=== PATIENT | female | born 1960 | race Caucasian/White ===

== ENCOUNTER 2016-08-23 14:47 | Emergency (ER) | payer BC ==
[~2016-08-23] VITALS: Ht 170.2 cm; Wt 115.0 kg
[~2016-08-23 14:47] MED LIST: COZA100T PO; HYCO5UDC PO; HYDR-3133 PO; LIPI20TA PO; LOSA50TA PO; MOBI7.5T PO; OMEP1CAP84; SYNT175T PO; TOPR100T15 PO
[2016-08-23 14:49] VITALS: BP 126/75; PULSE 79; RESP 20; TEMP 97.8; O2SAT 97
[2016-08-23] MEDS ORDERED: LIPI20TA PO (17:29)
[2016-08-23] MEDS ORDERED: LOSA100T PO (17:29)
[2016-08-23] MEDS ORDERED: HYDR-3133 PO (17:29)
[2016-08-23] MEDS ORDERED: MOBI7.5T PO (17:29)
[2016-08-23] MEDS ORDERED: TOPR100T PO (17:29)
[2016-08-23] MEDS ORDERED: APIX5TAB PO (17:29)
[2016-08-23] MEDS ORDERED: ZETI10TA5 PO (17:29)
[2016-08-23] MEDS ORDERED: SYNT175T PO (17:29)
[2016-08-23] MEDS ORDERED: HYDR-3533 PO (17:42)
[2016-08-23] MEDS ORDERED: SILV1CRE20 TOPICAL (17:42)
[2016-08-23] MEDS ORDERED: CLIN1CAP5 PO (17:42)
--- NOTE | 2016-08-23 17:42 | PD ---
HPI Chief Complaint: Skin Problem Time Seen by Provider: 17:22 Travel History International Travel<30 days: No Contact w/Intl Traveler<30days: No Traveled to known affect area: No History of Present Illness HPI 56-year-old female with history of DVT on Eliquis, here for evaluation of left leg wound. The patient first noticed the wound on 08/12/16. At that time there were signs of cellulitis, and the patient was treated with Bactrim and bacitracin. Patient finished her Bactrim 2 days ago. She was reevaluated by her primary care physician who ordered a lower extremity venous duplex which was negative for DVT. Patient continues to have pain and is concerned that her symptoms are not improving. Pain is moderate, constant, worse with palpation. PFSH Past Medical History Hx Anticoagulant Therapy: Yes Arthritis: Yes Cardiovascular Problems: Yes (HTN) High Cholesterol: Yes Diabetes: No Deep Vein Thrombosis: Yes GERD: Yes Hypertension: Yes Respiratory: Yes (PE) Thyroid Disease: Yes Tetanus Vaccination: > 5 Years Influenza Vaccination: Yes ?: Not Past Surgical History Cholecystectomy: Yes Hysterectomy: Yes Social History Alcohol Use: No Tobacco Use: Yes Substance Use: No Allergies-Medications (Allergen,Severity, Reaction): Coded Allergies: No Known Allergies (Unverified , 06/13/15) Reported Meds & Prescriptions Reported Meds & Active Scripts Active Lortab (Hydrocodone-Acetaminophen) 5-325 Mg Tab 1 Tab PO Q6H PRN Clindamycin (Clindamycin HCl) 150 Mg Cap 450 Mg PO Q6H 10 Days Silvadene Topical (Silver Sulfadiazine) 1 % Cream 1 Applic TOPICAL DIRECTED Reported Toprol XL (Metoprolol Succinate) 100 Mg Tab 100 Mg PO DAILY Synthroid (Levothyroxine Sodium) 175 Mcg Tab 175 Mcg PO DAILY Zetia (Ezetimibe) 10 Mg Tab 10 Mg PO DAILY Mobic (Meloxicam) 7.5 Mg Tab 7.5 Mg PO DAILY Losartan (Losartan Potassium) 100 Mg Tab 100 Mg PO DAILY Hydroxyzine HCl 25 Mg Tab 25 Mg PO QID Lipitor (Atorvastatin Calcium) 20 Mg Tab 20 Mg PO HS Eliquis (Apixaban) 5 Mg Tab 5 Mg PO BID Review of Systems Except as stated in HPI: all other systems reviewed are Neg Physical Exam Narrative GENERAL: Well-developed, well-nourished, comfortable, no acute distress. SKIN: Left distal/anterior/lateral leg with area of superficial ulceration with surrounding brownish skin discoloration and mild erythema. There is no purulent drainage. No crepitus. No necrosis. Bilateral lower extremities with numerous varicose veins. CARDIOVASCULAR: Regular rate and rhythm. Bilateral dorsalis pedis pulses are brisk and equal. RESPIRATORY: No accessory muscle use. MUSCULOSKELETAL: Skin exam as above. Bilateral calves are supple and nontender. Bilateral feet are warm with normal capillary refill. NEUROLOGICAL: Awake and alert. No obvious cranial nerve deficits. Motor grossly within normal limits. Normal speech. PSYCHIATRIC: Appropriate mood and affect; insight and judgment normal. Data Data Last Documented VS Vital Signs Date Time Temp Pulse Resp B/P Pulse Ox O2 Delivery O2 Flow Rate FiO2 08/23/16 17:17 75 18 08/23/16 14:49 97.8 126/75 97 Orders Tibia/Fibula (Ap/Lat) (08/23/16 ) Silver Sulfadia 1% Crm (50 Gm) (Silvaden (08/23/16 17:45) Clindamycin (Cleocin) (08/23/16 17:45) Wound Care (08/23/16 17:34) MDM Medical Decision Making Medical Screen Exam Complete: Yes Emergency Medical Condition: Yes Differential Diagnosis Venous stasis ulcer, cellulitis, necrotizing fasciitis unlikely Narrative Course Vital signs show heart rate 79, blood pressure 126/75, pulse ox 97% on room air , oral temp of 97.8F. Left tib-fib x-ray: FINDINGS: Two view examination of the left tibia demonstrates no evidence of fracture or dislocation. Bony mineralization is normal. The soft tissue structures are intact. Venous calcifications noted within the subcutaneous tissues. CONCLUSION: No acute abnormality. Patient was made aware of x-ray findings. Patient likely has a venous stasis ulcer. There is mild surrounding erythema. No purulent drainage. No crepitus to suggest appetizing fasciitis. Plan at this time is to have the patient perform local wound care at home with Silvadene ointment and start her on clindamycin orally. We will give her the information to the [place] wound center to follow-up with this week. Patient informed on when to return to the emergency department. She verbalizes understanding and agreement with plan. Diagnosis Primary Impression: Venous stasis ulcer Additional Impression: Cellulitis Qualified Code: L03.116 - Cellulitis of left lower extremity Referrals: Primary Care Physician 3 days Additional Instructions: Follow-up with your primary care physician this week. Follow-up with the [facility] this week. Take antibiotics as prescribed. Return to the emergency department for worsening symptoms or any other concerns. Scripts Hydrocodone-Acetaminophen (Lortab)5-325 Mg Tab1 Tab PO Q6H PRN (PAIN) #20 TAB Ref 0 Prov:Misbah Yoo MD 08/23/16 Clindamycin 150 Mg [id number] Mg PO Q6H 10 Days Ref 0 Prov:Misbah Yoo MD 08/23/16 Silver Sulfadiazine Topical (Silvadene Topical)1 % Cream1 Applic TOPICAL DIRECTED #400 GM Ref 0 Prov:Misbah Yoo MD 08/23/16 Disposition: 01 DISCHARGE HOME Condition: Stable Misbah Yoo MD Aug 23, 2016 17:42
[2016-08-23] MEDS ORDERED: CLINDAMYCIN 150 MG CAP PO ONE (17:45)
[2016-08-23] MEDS ORDERED: SILVER SULFADIAZINE 1% CR 50 GM JAR TOPICAL ONE (17:45)
--- NOTE | 2016-08-23 18:19 | RADRPT ---
EXAM DATE/TIME: 08/23/2016 17:40 [facility] COMPARISON: No previous studies available for comparison. INDICATIONS : Patient states ulcer on the anterior left tib/fib. MEDICAL HISTORY : None. SURGICAL HISTORY : None. ENCOUNTER: Initial ACUITY: 1 week PAIN SCORE: 6/10 LOCATION: Bilateral Tib/Fib FINDINGS: Two view examination of the left tibia demonstrates no evidence of fracture or dislocation. Bony min eralization is normal. The soft tissue structures are intact. Venous calcifications noted within the subcutaneous tissues. CONCLUSION: No acute abnormality. Ronnie Regan Jr., MD on August 23, 2016 at 18:16 Board Certified Radiologist. This report was verified electronically.
== END 2016-08-23 18:55 | disposition home or self-care (01) ==
LOC: NEPD 14:47
DX: I83.229 Varicose veins of left lower extremity with both ulcer of unspecified site and inflammation (principal); Z79.01 Long term (current) use of anticoagulants; Z86.718 Personal history of other venous thrombosis and embolism
CPT/HCPCS: 73590; 99284